=== PATIENT | female | born 1940 | race Caucasian/White ===

== ENCOUNTER → 2019-10-01 | Outpatient (CLI) | payer MEDICARE, BC ==
--- NOTE | 2019-10-01 10:47 | REPPI ---
Five views lumbar spine: 10/01/2019. Indication: Low back pain. Comparison: 12/07/2001 and 07/28/2012. Findings: There is no acute fracture, subluxation or dislocation. Disc space narrowing is present throughout most pronounced at L4/L5. The patient is status post cholecystectomy. Aortoiliac atherosclerotic disease is present. No lytic or blastic lesions are detected. Impression: No acute osseous injuries of the lumbar spine. Advanced spondylosis most pronounced at L4/L5. Electronically Signed by Je Cavazos DO 10/01/2019 10:38 A
== END ==
LOC: M PLALAB 09:52
PROVIDERS: ATTEND Internal Medicine Rheumatology
DX: M51.36 Other intervertebral disc degeneration, lumbar region (principal); M54.9 Dorsalgia, unspecified; G89.29 Other chronic pain; Z90.49 Acquired absence of other specified parts of digestive tract

== ENCOUNTER → 2021-07-03 | Outpatient (REF) | payer MEDICARE, BC ==
[2021-07-03 17:21] LABS: APPEARANCE, URINE CLEAR (CLEAR); BACTERIA, URINE AUTO NEGATIVE (NEGATIVE); BILIRUBIN, URINE AUTO NEGATIVE (NEGATIVE); BLOOD, URINE BLOOD NEGATIVE (NEGATIVE); COLOR, URINE YELLOW (YELLOW); GLUCOSE, URINE (UA) AUTO NEGATIVE (NEGATIVE); KETONE, URINE AUTO NEGATIVE (NEGATIVE); LEUKOCYTE ESTERASE, URINE AUTO NEGATIVE (NEGATIVE); NITRITE, URINE AUTO NEGATIVE (NEGATIVE); PROTEIN, URINE AUTO NEGATIVE (NEGATIVE); RBC, URINE AUTO 0 /HPF (0-3); SPECIFIC GRAVITY URINE AUTO 1.008 (1.002-1.035); SQUAMOUS EPITHELIAL CELL UR AU 0 /HPF (0-6); UROBILINOGEN, URINE AUTO 0.2 mg/dL (0.0-2.0); WBC, URINE AUTO 0 /HPF (0-3)
== END ==
LOC: M SMT 16:33
PROVIDERS: ATTEND Nurse Practitioner Women's Health
DX: Z87.440 Personal history of urinary (tract) infections (principal); Z79.899 Other long term (current) drug therapy